=== PATIENT | male | born 1940 | race Caucasian/White ===

== ENCOUNTER 2023-05-03 08:32 | Outpatient (CLI) | payer OTHER | END 2023-05-03 23:59 | disposition home or self-care (01) | LOC: VAS 08:32 | PROVIDERS: ATTEND Physician Assistant | DX: R60.0 Localized edema (principal); M71.21 Synovial cyst of popliteal space [Baker], right knee | CPT/HCPCS: 93971 ==

== ENCOUNTER 2023-09-21 10:53 | Day surgery (SDC) | payer OTHER ==
[2023-09-17 10:57] LABS: BASOPHILS % (AUTO) 0.2 % (0-1); EOSINOPHILS % (AUTO) 0.5 % (0-6); HEMATOCRIT 38.8 % (42.0-52.0); HEMOGLOBIN 12.8 g/dl (14.0-17.9); LYMPHOCYTES # (AUTO) 1.7 X10'3 (1.1-4.8); LYMPHOCYTES % (AUTO) 26.9 % (21-51); MEAN CORPUSCULAR HEMOGLOBIN 29.9 PG (27.0-31.0); MEAN CORPUSCULAR VOLUME 90.6 FL (78-98); MEAN PLATELET VOLUME 8.3 FL (7.4-10.4); MONOCYTES # (AUTO) 0.6 X10'3 (0-0.9); MONOCYTES % (AUTO) 8.7 % (2-12); NEUTROPHILS # (AUTO) 4.1 X10'3 (1.8-7.7); NEUTROPHILS % (AUTO) 63.7 % (42-75); PLATELET COUNT 216 X10'3 (140-440); RED BLOOD COUNT 4.28 X10'6 (4.70-6.10); RED CELL DISTRIBUTION WIDTH 15.9 % (11.5-14.5); WHITE BLOOD COUNT 6.4 X10'3 (4.5-11.0)
[2023-09-17 11:06] LABS: ALBUMIN 3.8 G/DL (3.4-5.0); ANION GAP 11 (8-16); BLOOD UREA NITROGEN 31 MG/DL (7-18); BUN/CREATININE RATIO 21.1 (10.0-20.0); CALCIUM 9.6 MG/DL (8.5-10.1); CHLORIDE 105 MMOL/L (99-107); CREATININE 1.47 MG/DL (0.60-1.10); GLUCOSE 119 MG/DL (70-104); POTASSIUM 4.3 MMOL/L (3.5-5.1); SODIUM 138 MMOL/L (135-145); TOTAL CARBON DIOXIDE 22.2 MMOL/L (24-32); eGFR 46 ML/MIN
[2023-09-17 11:08] LABS: APTT 44 SECONDS (22-32); PROTHROMBIN TIME 20.9 SECONDS (9.0-12.0)
[2023-09-21] VITALS (7 sets, daily range): BP systolic 105–129; BP diastolic 61–89; PULSE 76–116; RESP 10–20; TEMP 97.9; O2SAT 93–94
[~2023-09-21] VITALS: Ht 175.3 cm; Wt 88.0 kg
[2023-09-21] MEDS ORDERED: MIDAZolam 1mg/ml 10ml vial IV ONE (11:10)
[2023-09-21] MEDS ORDERED: fentaNYL/PF 50MCG/1 ML 2ML syringe IV ONE (11:10)
[2023-09-21] MEDS ORDERED: normal saline 1000ml 1,000 ML IV SCH (11:10)
[2023-09-21] MEDS ORDERED: FINA5TAB11 PO (11:24)
[2023-09-21] MEDS ORDERED: SOTA80TA PO (11:24)
[2023-09-21] MEDS ORDERED: MULT-1085 PO (11:24)
[2023-09-21] MEDS ORDERED: CHOL200074 PO (11:24)
[2023-09-21] MEDS ORDERED: AMLO5TAB16 PO (11:24)
[2023-09-21] MEDS ORDERED: KRIL500C PO (11:24)
[2023-09-21] MEDS ORDERED: WARF-55 PO (11:24)
[2023-09-21] MEDS ORDERED: CYAN250014 PO (11:24)
[2023-09-21] MEDS ORDERED: LOSA100T58 PO (11:24)
[2023-09-21] MEDS ORDERED: FLO0.4C PO (11:24)
[2023-09-21] MEDS ORDERED: VITC500T PO (11:24)
[2023-09-21] MEDS ORDERED: TRAZ150T78 PO (11:24)
[2023-09-21 11:35] LABS: INR 2.1 INR; PROTHROMBIN TIME 21.7 SECONDS (9.0-12.0)
[2023-09-21] MEDS ORDERED: fentaNYL/PF 50MCG/1 ML 2ML syringe ONE (11:43)
[2023-09-21] MEDS ORDERED: midazolam 1 mg/ML 2ml injection ONE (11:43)
== END 2023-09-21 13:16 | disposition home or self-care (01) ==
LOC: SSTAY O 10:53
PROVIDERS: ATTEND Student in an Organized Health Care Education/Training Program
DX: I48.91 Unspecified atrial fibrillation (principal); I12.9 Hypertensive chronic kidney disease with stage 1 through stage 4 chronic kidney disease, or unspecified chronic kidney disease; N18.9 Chronic kidney disease, unspecified; G47.33 Obstructive sleep apnea (adult) (pediatric); Z88.8 Allergy status to other drugs, medicaments and biological substances; Z79.899 Other long term (current) drug therapy; Z98.890 Other specified postprocedural states
CPT/HCPCS: 36415; 80048; 85025; 85610; 85730; 92960; 99152; J2250; J3010; J7030

== ENCOUNTER 2024-07-11 10:39 | Day surgery (SDC) | payer OTHER ==
[2024-07-07 10:11] LABS: BASOPHILS % (AUTO) 0.1 % (0-1); EOSINOPHILS % (AUTO) 0.4 % (0-6); HEMATOCRIT 41.8 % (42.0-52.0); LYMPHOCYTES % (AUTO) 25.8 % (21-51); MEAN CORPUSCULAR HEMOGLOBIN 31.5 PG (27.0-31.0); MEAN CORPUSCULAR HGB CONC 33.6 g/dL (33.0-36.5); MEAN CORPUSCULAR VOLUME 93.8 FL (78-98); MEAN PLATELET VOLUME 8.1 FL (7.4-10.4); MONOCYTES # (AUTO) 0.6 X10'3 (0-0.9); NEUTROPHILS # (AUTO) 5.1 X10'3 (1.8-7.7); NEUTROPHILS % (AUTO) 65.7 % (42-75); PLATELET COUNT 205 X10'3 (140-440); RED BLOOD COUNT 4.45 X10'6 (4.70-6.10); RED CELL DISTRIBUTION WIDTH 13.9 % (11.5-14.5); WHITE BLOOD COUNT 7.8 X10'3 (4.5-11.0)
[2024-07-07 10:23] LABS: APTT 52 SECONDS (22-32); INR 2.9 INR
[2024-07-07 10:35] LABS: ALBUMIN 4.2 G/DL (3.4-5.0); ANION GAP 7 (8-16); BLOOD UREA NITROGEN 26 MG/DL (7-18); BUN/CREATININE RATIO 16.9 (10.0-20.0); CALCIUM 9.3 MG/DL (8.5-10.1); CHLORIDE 106 MMOL/L (99-107); CHOLESTEROL 143 MG/DL (0-200); CREATININE 1.54 MG/DL (0.60-1.10); GLUCOSE 104 MG/DL (70-104); HDL CHOLESTEROL 73 MG/DL (35-60); LDL CHOLESTEROL 53 MG/DL (50-100); POTASSIUM 4.4 MMOL/L (3.5-5.1); SODIUM 140 MMOL/L (135-145); TOTAL CARBON DIOXIDE 26.9 MMOL/L (24-32); TRIGLYCERIDES 94 MG/DL (20-135); eGFR 43 ML/MIN
[~2024-07-11] VITALS: Ht 175.3 cm; Wt 89.3 kg
[2024-07-11] VITALS (9 sets, daily range): BP systolic 118–141; BP diastolic 53–92; PULSE 70–79; RESP 10–19; TEMP 98.7; O2SAT 94–97
[~2024-07-11 10:39] MED LIST: AMLO5TAB16 PO; CYAN250014 PO; EZET10TA48 PO; FINA5TAB11 PO; FLO0.4C PO; KRIL500C PO; LOSA100T58 PO; SIMV-45 PO; SOTA80TA PO; TRAZ150T78 PO; WARF-55 PO
[2024-07-11] MEDS ORDERED: AMLO10TA13 PO (11:02)
[2024-07-11] MEDS ORDERED: SOTA80TA73 PO (11:05)
[2024-07-11] MEDS ORDERED: MULT-1085 PO (11:06)
[2024-07-11] MEDS ORDERED: Warfarin PO ×2 (11:10→11:11)
[2024-07-11] MEDS: diphenhydrAMINE 25mg capsule PO PRN (11:22)
[2024-07-11] MEDS: LORazepam 0.5 MG tablet PO PRN (11:22)
[2024-07-11] MEDS: normal saline 1,000 ML IV SCH (11:23)
[2024-07-11 11:46] LABS: APTT 45 SECONDS (22-32); INR 1.7 INR; PROTHROMBIN TIME 17.4 SECONDS (9.0-12.0)
[2024-07-11] MEDS ORDERED: LIDOcaine 1% (10mg/ml) 2ml vial ONE (12:17)
[2024-07-11] MEDS ORDERED: verapamil 2.5 mg/ml inj IV ONE (12:17)
[2024-07-11] MEDS ORDERED: iohexol 350MG/ML 100ml bottle IV ONE (12:18)
[2024-07-11] MEDS ORDERED: fentaNYL/PF 50MCG/1 ML 2ML syringe ONE (12:18)
[2024-07-11] MEDS ORDERED: heparin 1,000unit/ml 10ml vial 10 ML ONE (12:18)
[2024-07-11] MEDS ORDERED: midazolam 1 mg/ML 2ml injection ONE (12:18)
[2024-07-11] MEDS ORDERED: HYDROcodone/acetaminophen 5mg/325mg tablet PO PRN (13:55)
[2024-07-11] MEDS ORDERED: HYDROcodone/acetaminophen 10/325mg tab PO PRN (13:55)
== END 2024-07-11 16:05 | disposition home or self-care (01) ==
LOC: SSTAY O 10:39
PROVIDERS: ATTEND Student in an Organized Health Care Education/Training Program
DX: I34.0 Nonrheumatic mitral (valve) insufficiency (principal); I49.3 Ventricular premature depolarization; I12.9 Hypertensive chronic kidney disease with stage 1 through stage 4 chronic kidney disease, or unspecified chronic kidney disease; N18.30 Chronic kidney disease, stage 3 unspecified; E78.00 Pure hypercholesterolemia, unspecified; I48.91 Unspecified atrial fibrillation; G47.33 Obstructive sleep apnea (adult) (pediatric); Z79.01 Long term (current) use of anticoagulants; Z79.899 Other long term (current) drug therapy; Z88.8 Allergy status to other drugs, medicaments and biological substances
CPT/HCPCS: 36415; 80048; 80061; 85025; 85610; 85730; 93005; 93458; J1644; J2250; J3010; J3490; J7030; Q0163; Q9967; 99152; A6258; A6402; C1894